=== PATIENT | female | born 1980 | race African-American/Black ===

== ENCOUNTER 2020-10-10 14:37 | Inpatient (IN) | payer OTHER ==
[2020-10-10 16:20] VITALS: BMI 21.7
[2020-10-10] MEDS ORDERED: NICOTINE POLACRILEX 2 MG GUM BC PRN (20:58)
[2020-10-10] MEDS ORDERED: MAGNESIUM HYDROX 2400MG/30ML ORAL SUSPENSION 30 ML CUP PO PRN (20:58)
[2020-10-10] MEDS ORDERED: P-EPHED 60MG/TRIPROLIDI 2.5MG TABLET PO PRN (20:58)
[2020-10-10] MEDS ORDERED: LOPERAMIDE HCL 2 MG CAPSULE PO PRN (20:58)
[2020-10-10] MEDS ORDERED: IBUPROFEN 400 MG TABLET (FP) PO PRN (20:58)
[2020-10-10] MEDS ORDERED: ACETAMINOPHEN 325 MG TABLET (FP) PO PRN (20:58)
[2020-10-10] MEDS ORDERED: MAGNESIUM CITRATE 300 ML BOTTLE PO PRN (20:58)
[2020-10-10] MEDS ORDERED: MAG HYDROX/AL HYDROX/SIMETH 30 ML UNIT-DOSE CUP PO PRN (20:58)
[2020-10-10] MEDS ORDERED: guaiFENesin 200 MG/10 ML 10 ML UNIT-DOSE CUPS PO PRN (20:58)
[2020-10-10] MEDS ORDERED: TUBERCULIN PPD 5 TU/0.1ML VIAL ID ONE (21:46)
[2020-10-10] MEDS: THIAMINE HCL 100 MG TABLET (FP) PO SCH (21:56)
[2020-10-10] MEDS: MELATONIN 5 MG TABLETS PO SCH (21:56)
[2020-10-11] MEDS: PATIENT'S OWN MEDICATION (NON-FORMULARY) (Bictegrav/Emtricit/Tenofov Ala 1 EACH Tablet) PO SCH (10:35)
[2020-10-11] MEDS: PRENATAL VITAMINS W/ FOLIC ACID TABLET (FP) PO SCH (10:36)
[2020-10-11] MEDS: NICOTINE 14 MG/24 HOURS TOPICAL PATCH TD SCH (10:36)
[2020-10-11 11:27] LABS: POTASSIUM 4.1 mmol/L (3.5-5.1)
[2020-10-11 11:32] LABS: ALBUMIN 3.3 g/dl (3.4-5.0); BLOOD UREA NITROGEN 10.7 mg/dL (7-18); CALCIUM 8.8 mg/dL (8.5-10.1)
[2020-10-11 11:34] LABS: CREATININE 0.9 mg/dL (0.55-1.3)
[2020-10-11 11:36] LABS: BILIRUBIN,TOTAL 0.4 mg/dL (0.2-1); TOT PROT 7.4 g/dl (6.4-8.2)
[2020-10-11] MEDS: risperiDONE 1 MG TABLET PO SCH ×2 (11:39→21:32)
[2020-10-11 12:02] LABS: HEMATOCRIT 31.8 % (32.4-45.2); MCH 25.7 pg (25.7-33.7); MCHC 31.3 g/dl (32.0-36.0); MEAN CELL VOLUME 82.1 fl (80-96); MEAN PLT VOLUME 8.6 fl (7.5-11.1); PLATELET COUNT 207 K/MM3 (134-434); RBC 3.88 M/mm3 (3.60-5.2); RDW 19.4 % (11.6-15.6)
[2020-10-11] MEDS: THIAMINE HCL 100 MG TABLET (FP) PO SCH (21:32)
[2020-10-11] MEDS: MELATONIN 5 MG TABLETS PO SCH (21:32)
[2020-10-12] MEDS ORDERED: PT OWN MED DRAWER 7, Y5N ONE ×2 (03:29→07:26)
[2020-10-12] MEDS: PATIENT'S OWN MEDICATION (NON-FORMULARY) (Bictegrav/Emtricit/Tenofov Ala 1 EACH Tablet) PO SCH (07:25)
[2020-10-12] MEDS: risperiDONE 1 MG TABLET PO SCH ×2 (09:52→21:15)
[2020-10-12] MEDS: PRENATAL VITAMINS W/ FOLIC ACID TABLET (FP) PO SCH (09:52)
[2020-10-12] MEDS: NICOTINE 14 MG/24 HOURS TOPICAL PATCH TD SCH (09:53)
[2020-10-12 18:13] LABS: EPI CELLS >36 /uL (0-25.1); HYALINE CASTS 6 /uL (0-3.1); PH,URINE 7.5 (5.0-8.0); URINE APPEARANCE CLOUDY; URINE BACTERIA 4535 /uL (0-1359); URINE BILIRUBIN NEGATIVE (NEGATIVE); URINE COLOR YELLOW; URINE GLUCOSE (UA) NEGATIVE (NEGATIVE); URINE KETONE NEGATIVE (NEGATIVE); URINE LEUK ESTERASE 3+ (NEGATIVE); URINE NITRITE NEGATIVE (NEGATIVE); URINE PROTEIN NEGATIVE (NEGATIVE); URINE RBC 7 /uL (0-23.9); URINE UROBILINOGEN 0.2 mg/dL (0.2-1.0); URINE WBC 97 /uL (0-25.8)
[2020-10-12] MEDS: THIAMINE HCL 100 MG TABLET (FP) PO SCH (21:15)
[2020-10-12] MEDS: MELATONIN 5 MG TABLETS PO SCH (21:15)
[2020-10-13] MEDS ORDERED: PT OWN MED DRAWER 7, Y5N ONE (03:21)
[2020-10-13] MEDS: PATIENT'S OWN MEDICATION (NON-FORMULARY) (Bictegrav/Emtricit/Tenofov Ala 1 EACH Tablet) PO SCH (07:11)
[2020-10-13] MEDS: PRENATAL VITAMINS W/ FOLIC ACID TABLET (FP) PO SCH (09:44)
[2020-10-13] MEDS: NICOTINE 14 MG/24 HOURS TOPICAL PATCH TD SCH (09:44)
[2020-10-13] MEDS: risperiDONE 1 MG TABLET PO SCH ×2 (09:44→21:22)
[2020-10-13] MEDS: MELATONIN 5 MG TABLETS PO SCH (21:21)
[2020-10-13] MEDS: THIAMINE HCL 100 MG TABLET (FP) PO SCH (21:22)
[2020-10-14] MEDS ORDERED: PT OWN MED DRAWER 7, Y5N ONE (07:20)
[2020-10-14] MEDS: PATIENT'S OWN MEDICATION (NON-FORMULARY) (Bictegrav/Emtricit/Tenofov Ala 1 EACH Tablet) PO SCH (07:20)
[2020-10-14] MEDS: NICOTINE 14 MG/24 HOURS TOPICAL PATCH TD SCH (09:33)
[2020-10-14] MEDS: risperiDONE 1 MG TABLET PO SCH ×2 (09:33→21:35)
[2020-10-14] MEDS: PRENATAL VITAMINS W/ FOLIC ACID TABLET (FP) PO SCH (09:33)
[2020-10-14] MEDS: MELATONIN 5 MG TABLETS PO SCH (21:35)
[2020-10-14] MEDS: THIAMINE HCL 100 MG TABLET (FP) PO SCH (21:35)
[2020-10-15] MEDS ORDERED: PT OWN MED DRAWER 7, Y5N ONE ×2 (03:17→08:57)
[2020-10-15 06:49] VITALS: BP 128/85; PULSE 68; TEMP 97.5
[2020-10-15] MEDS: PATIENT'S OWN MEDICATION (NON-FORMULARY) (Bictegrav/Emtricit/Tenofov Ala 1 EACH Tablet) PO SCH (07:16)
[2020-10-15] MEDS: risperiDONE 1 MG TABLET PO SCH (09:09)
[2020-10-15] MEDS: PRENATAL VITAMINS W/ FOLIC ACID TABLET (FP) PO SCH (09:10)
[2020-10-15] MEDS: NICOTINE 14 MG/24 HOURS TOPICAL PATCH TD SCH (09:10)
== END 2020-10-15 09:25 | disposition left against medical advice (07) | DRG 770 ==
LOC: YASAS 14:37 → Y3E 21:12
PROVIDERS: ADMIT Allergy & Immunology; ATTEND Allergy & Immunology
PROC: HZ42ZZZ Group Counseling for Substance Abuse Treatment, Cognitive-Behavioral (ICD-10-PCS; principal; 2020-10-10)
DX: F10.20 Alcohol dependence, uncomplicated (principal); F14.20 Cocaine dependence, uncomplicated; F12.20 Cannabis dependence, uncomplicated; F17.210 Nicotine dependence, cigarettes, uncomplicated; F19.24 Other psychoactive substance dependence with psychoactive substance-induced mood disorder; F32.9 Major depressive disorder, single episode, unspecified; Z21 Asymptomatic human immunodeficiency virus [HIV] infection status; Z89.412 Acquired absence of left great toe; Z89.422 Acquired absence of other left toe(s); Z91.410 Personal history of adult physical and sexual abuse
CPT/HCPCS: 36415; 80053; 81003; 85027; 86780; 93005; 93010; C9803; J2794; U0003